=== PATIENT | female | born 1955 | race Caucasian/White ===

== ENCOUNTER → 2023-10-31 00:09 | Outpatient (CLI) | payer MEDICARE, BC, SELFPAY ==
--- NOTE | 2023-10-31 | DI.NM_ITS ---
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 COMPARISON: NM NM I123 THYROID UP SC DAY 1 from 10/30/2023 TECHNIQUE: Capsule Dose: 200 uCi I-123 Uptake measurements: At 6 hours and 24 hours. FINDINGS: The radioiodine uptake was 10.6 percent at 4 hours. The total radioiodine uptake was 35.5% at [address]. IMPRESSION: 1. Total radioiodine uptake of 35.5 percent which is at the upper limit of normal. SNM Guidelines: Normal uptake values 10-35%. Graves Uptake >50-80%. DATA REPOSITORY:
== END ==
PROVIDERS: Visit Provider Student in an Organized Health Care Education/Training Program
DX: E05.90 Thyrotoxicosis, unspecified without thyrotoxic crisis or storm (principal)
CPT/HCPCS: 78014; A9512